=== PATIENT | female | born 1935 | race Hispanic/Latino ===

== ENCOUNTER 2020-08-14 08:59 | Day surgery (SDC) | payer MEDICARE, MEDICAID ==
[2020-08-14] MEDS ORDERED: Activase 2 MG VIAL CATH SCH (09:30)
[2020-08-14] MEDS ORDERED: Iopamidol 300 61% 100 ML VIAL FS ONE (11:37)
[2020-08-14 12:34] VITALS: BP 117/57; TEMP 98
[2020-08-14] MEDS ORDERED: Heparin 1,000 UNITS/ML VIAL ONE (15:14)
--- NOTE | 2020-08-14 16:29 | SPC ---
Left upper extremity dialysis fistulogram, thrombolysis, percutaneous balloon angioplasty Sonographic guided vascular access HISTORY: Renal failure. Clotted left upper extremity dialysis graft FINDINGS: After explaining the procedure and answering all questions with the help of an residue furnace operator, sonographic survey of the left upper arm dialysis graft was performed. The graft throughout most of the upper arm was clotted. The most peripheral portion of the graft showed internal pulsating flow and clot. Arterial anastomosis was patent. Sterile technique, buffered local anesthesia, sonographic guidance, and a 22-gauge needle were used t o carefully access the peripheral portion of the graft, directed towards the venous outflow. A 4 [place] micropuncture sheath was placed for imaging, showing extensive soft thrombus within the periph eral portion of the graft, to the point of narrowing due to repetitive dialysis access. Arterial anastomosis is widely patent. A 6 Malaysian short sheath was carefully placed, and a 0.035 Glidewire and 5 [place] Berenstein catheter were carefully manipulated through the area of narrowing in the graft at the level of the distal humeral shaft, where repetitive dialysis access has damaged the graft. 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 The catheter was carefully manipulated to the cephalic venous outflow which was very small and contains clot. The cephalic vein is narrowed to deployment of its junction with the subclavian vein. Subclavian vein and superior vena cava were widely patent. Using the Berenstein catheter, a total of 4 mg TPA and 2000 units heparin in 10 cc volume were carefu lly placed throughout the carotid cephalic vein and graft. A 6 mm x 4 cm Culbertson balloon was then placed to the level of strictures at the central cephalic vein. Serial dilatation was performed, alth ough the stricture was never completely relieved. Serial dilatation throughout the remainder of the cephalic vein and graft was performed to macerate the clot. Repeat imaging showed significant interva l decrease in clot burden and partial judaism of flow. The areas of large thrombus within the aneurysmal dilatation at the peripheral aspect of the graft were now better delineated. An additional 2000 unit heparin was administered IV. The stricture at the central cephalic vein was apparently significant enough to prevent passage of sm all clot particles. Therefore additional dilatation was needed. A 5 mm x 2 cm cutting balloon was carefully placed over a 0.018 glide wire to the level of the strict ure. Full balloon profile was achieved with gentle insufflation, fully relieving the stricture to 5 mm. Repeat imaging showed some improvement in diameter, although the residual narrowing was likely to result in repeat occlusion. An 8 mm x 2 cm [place]on dilatation balloon was then carefully placed to the level of stricture, and careful insufflation performed to achieve full bone profile. Repeat imagi ng showed improvement in caliber and improved flow throughout the graft. At this point, some contrast was seen outside of the central cephalic vein. Some contrast accumulation at the left axilla was apparent. The catheter and sheath were removed and hemostasis obtained using direct pressure. Patient tolerated the procedure well. After the procedure, an enlarging area at the left axilla corre lated with a hematoma. After monitoring, the patient was discharged with instructions for icepack placement. IMPRESSION : Technically successful thrombolysis of left upper arm dialysis graft and balloon angioplasty of the a reas of stricture at the central cephalic vein. After dilatation to 8 mm, some extravasation was apparent, indicating injury to the central cephalic vein. Flow remained within the graft at the end o f the procedure and was felt by palpation after the procedure. 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 A new graft will likely be necessary in the near future.
== END 2020-08-14 12:10 | disposition home or self-care (01) ==
LOC: ER/OP 08:59
PROVIDERS: ATTEND Internal Medicine Nephrology
PROC: B30JZZZ Plain Radiography of Left Upper Extremity Arteries (ICD-10-PCS; principal; 2020-08-14)
DX: T82.49XA Other complication of vascular dialysis catheter, initial encounter (principal); I13.2 Hypertensive heart and chronic kidney disease with heart failure and with stage 5 chronic kidney disease, or end stage renal disease; E11.22 Type 2 diabetes mellitus with diabetic chronic kidney disease; N18.6 End stage renal disease; I50.9 Heart failure, unspecified; Z86.73 Personal history of transient ischemic attack (TIA), and cerebral infarction without residual deficits; Z95.0 Presence of cardiac pacemaker; Z95.1 Presence of aortocoronary bypass graft; Z99.2 Dependence on renal dialysis
CPT/HCPCS: 36901; 36905; 75902; C1725 ×2; J2997; J1644; Q9967